=== PATIENT | male | born 1980 | race Caucasian/White ===

== ENCOUNTER 2018-09-21 05:25 | Inpatient (IN) | payer BC, OTHER ==
[~2018-09-21] VITALS: Ht 185.4 cm; Wt 185.1 kg
--- NOTE | ~2018-09-21 | HC ---
[facility] [place] [address] CONSULTATION Name: CARISA TOWNSEND Paola Room #: 426-P [facility] IN .R.#: [id number] Admission: 09/21/18 ������������������ Attend Phys: Darryl Lopez MD Discharge: 09/23/18 ������������������ Date of : 80 Report #: [id number] THIS REPORT FOR: //name// CC: Kye Lopez DATE OF SERVICE: 09/22/2018 INFECTIOUS DISEASE CONSULTATION: REASON FOR CONSULTATION: Evaluate for right diabetic foot infection with osteomyelitis. HISTORY OF PRESENT ILLNESS: The patient is a 38-year-old with underlying history of diabetes, hypertension. He has previously had an amputation of his first and fourth toes. About a year ago, he injured his fifth toe when he hit it on a bedpost. Subsequently, he developed soft tissue infection with ulceration. He has had issues with poor healing. Over the past month, it has worsened and he was started on IV antibiotic therapy. I do not have any microbiology reports, was placed on cefazolin. Due to progressive disease, he was transferred to the care of Dr. Lopez for surgical intervention. He comes to us on cefazolin a gram IV q. 8 hours via a left upper extremity PICC, which has been functioning well. Blood sugar control has been poor. Blood glucose levels over 300, have been common place. He denies any other diabetic complications. Today, he underwent transmetatarsal amputation without intraoperative complication. Postoperatively, he has been afebrile and hemodynamically stable. There has been no excess bleeding. REVIEW OF SYSTEMS: No nausea, vomiting, diarrhea, dysuria, frequency, cough or sputum production. No pleuritic chest pain. No palpitations or syncopal episode. Full 10-point review was negative other than what is described above. ALLERGIES: None known. MEDICATIONS: As noted on his MAR, which were reviewed including cefazolin. PAST MEDICAL HISTORY: Hypertension, diabetes, gastroesophageal reflux, previous toe amputations. FAMILY HISTORY: Noncontributory. SOCIAL HISTORY: Previous smoker, having quit about a year ago. No significant alcohol intake. 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 Lives with his . PHYSICAL EXAMINATION: VITAL SIGNS: Afebrile and hemodynamically stable. He was obese. He is alert [address] [address] CONSULTATION Name: CARISA TOWNSEND Room #: 426-P [facility] IN .R.#: [id number] Admission: 09/21/18 ������������������ Attend Phys: Darryl Lopez MD Discharge: 09/23/18 ������������������ Date of : 80 Report #: [id number] and cooperative, in no acute distress. Left upper extremity PICC site without drainage or erythema. SKIN: Without rash or decubitus. No palpable adenopathy. HEENT: Eyes, without scleral icterus. Mouth without mucositis. NECK: Supple, with no thyromegaly or mass. LUNGS: Clear to auscultation. HEART: Regular, without murmur, gallop or rub. ABDOMEN: Soft, nontender with no hepatosplenomegaly or mass. EXTREMITIES: Pulses were palpable in the left foot, but diminished. He had palpable pulse in his femoral and popliteal artery. Foot was wrapped and dry. NEUROLOGIC: Cranial nerves intact. Mood was normal. LABORATORY STUDIES: Chest x-ray was clear. Hemoglobin 10.5, WBC 12.7, platelet count 245,000. Creatinine 1.2. Gram stain, no organisms seen. Ultrasound of the lower extremity arterial Doppler was negative for high-grade obstruction. IMPRESSION: 1. Diabetes with diabetic foot infection with associated osteomyelitis requiring transmetatarsal amputation. 2. Hypertension. 3. Obesity. 4. Small vessel vascular disease. RECOMMENDATIONS: We will plan on continuing cefazolin. We will determine length of therapy following formal review of his operative report, pathology reports and cultures. The patient lives in [place], [place]. Anticipate discharge back to his primary care and Infectious Disease physician. ��������������������������������������������� ���������������������������������������� By: ��������������������������������������������� 0016 2107 Steven Bower MD /nt
[~2018-09-21 05:25] MED LIST: ASPIRIN325 PO; CEFAZOLIN2 GM/100 M IV; LANTUS100 UNIT/M SUBQ; LISINOPRIL20 MG PO; LOPRESSOR50 PO; METFORMIN HCL500 MG PO; NORVASC5 MG PO; NOVOLOG100 UNIT/1 SUBQ
[2018-09-21 07:00] VITALS: BP 160/81
--- NOTE | 2018-09-21 08:45 | EKG ---
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 : 1980 Requested By: Darryl Lopez Order Number: [id number] MD: Tank Frias Measurements Intervals [place] Rate: 71 P: 48 ME: 199 QRS: -34 QRSD: 115 T: 28 QT: 412 QTc: 448 Interpretive Statements Sinus rhythm Nonspecific intraventricular conduction delay No previous ECG available for comparison Electronically Signed On 09-21-2018 8:45:21 CDT by Tank Frias [email or web address] ��������������������������������������������� <ELECTRONICALLY SIGNED> ���������������������������������������� By: Tank Frias MD, [facility] ��������������������������������������������� 09/21/18 0845 0618 7 Tank Frias MD, FACC /EPI
[2018-09-21 15:10] VITALS: BP 170/89
[2018-09-21 16:00] VITALS: BP 164/85
--- NOTE | 2018-09-21 19:06 | NUR ---
PT ARRIVED ON UNIT AT APPROX 1430 . PT ALERT XS 4 STATES NO PAIN AT THE PRESENT. LUNGS CTA. BS'S XS 4. BM THIS AM. PT HAS DRSG TO RIGHT FOOT.COVERED WITH SUNDEEP. HAS 2 DRAINS UNDER.LEFT UPPER ARM PICC.X-RAY TO CHECK FOR PLACEMENT DONE. ROOM AIR. PT HAD LUNCH AND INSULIN IN POST OP. DM DIET, SCD'S. POST OP SHOE IN ROOM. PT PLEASANT AND COOPERATIVE WITH CARE.
[2018-09-21 19:27] VITALS: BP 167/86
--- NOTE | 2018-09-22 03:43 | NUR ---
PT DENIED PAIN,N/V SO FAR.URINAL AT BEDSIDE FOR ELIMINATION.ASSESSMENT COMPLETED.DRSG TO R FOOT C/D/I WITH ORTHOPEDIC SHOE IN PLACE.SCD IN PLACE.PT ABLE TO MOVE SELF WHILE IN BED.PT RESTING ON HIS BED AT THIS TIME.FALL PRECAUTIONS IN PLACE,CALL LIGHT WITHIN REACH.
[2018-09-22 04:47] VITALS: BP 37/59
[2018-09-22 06:19] LABS: ABSOLUTE NEUTROPHILS 9.8 thou/uL (1.4-8.2); BASOPHILS 0.4 % (0.0-2.0); EOSINOPHILS 0.3 % (0.0-3.0); HEMATOCRIT 31.1 % (42.0-52.0); HEMOGLOBIN 10.5 gm/dL (14.0-18.0); LYMPHOCYTES 17.3 % (24.0-44.0); MCH 27.9 pg (26.0-34.0); MCHC 33.7 g/dL (28.0-37.0); MCV 82.9 fL (80.0-100.0); MONOCYTES 5.3 % (1.0-8.0); PLATELET COUNT 245 thou/uL (150-400); POLYS 76.7 % (36.0-66.0); RBC 3.75 mil/uL (4.50-6.00); RDW 13.9 % (10.5-14.5); WBC 12.7 thou/uL (4.0-11.0)
--- NOTE | 2018-09-22 08:38 | NUR ---
INITIAL ASSESSMENT: Pt evaluated for d/c planning needs. Reviewed chart and spoke with nurse and pt. Pt is alert and oriented. Pt lives in house with spouse. Pt is employed outside the home and is independent with ADL's. Pt has walker for home use. Pt has been on IVAB for about 3 weeks prior to admission to the hospital and obtains his antibiotics at his physician's office weekly. They also do dressing changes on IV. Pt plans on returning home on d/c from hospital. Will remain available to assist as needed.
[2018-09-22 08:45] LABS: CALCIUM 8.2 mg/dL (8.5-10.1); CREATININE 1.2 mg/dL (0.7-1.3); MAGNESIUM 1.8 mg/dL (1.8-2.4)
[2018-09-22 08:51] LABS: POTASSIUM 4.9 mmol/L (3.5-5.1)
[2018-09-22 09:15] VITALS: BP 142/67
[2018-09-22 18:11] VITALS: BP 178/89
--- NOTE | 2018-09-22 18:34 | NUR ---
PT STATES SURGEON WILL BE IN 09/23/18 HE WILL UNDO BANDAGE / DRSG. LEAVE INTACT UNTIL THEN.
[2018-09-22 20:45] VITALS: BP 182/75
[2018-09-23 01:59] VITALS: BP 119/64
[2018-09-23 04:20] VITALS: BP 131/68
--- NOTE | 2018-09-23 05:37 | NUR ---
PT DENIED PAIN SO FAR.CONT ON IV ABX ORDERED.URINAL AT BEDSIDE.DRSG TO R FOOT C/D/I.HEEL BEARING SHOE IN PLACE ON R FOOT.PT RESTING COMFORTABLY ON HIS BED AT THIS TIME.CALL LIGHT WITHIN REACH.
[2018-09-23 07:30] VITALS: BP 185/90
[2018-09-23] MEDS ORDERED: PROTONIX40 M1 PO (10:45)
[2018-09-23 13:39] VITALS: BP 185/90
--- NOTE | 2018-09-23 14:10 | NUR ---
ASSUMED CARE AT 0700, SHIFT ASSESSMENT DONE, MEDS GIVEN, VSS. DENIES PAIN, NAUSEA, VOMITING. DISCHARGE ORDER RECEIVED, PICC LINE DRESSING WAS CHANGED. IV ANTIBIOTIC RECEIVED. WILL PET GROOMER MEDICATION FROM [facility]. LEFT WITH [facility] AT 1410.
--- NOTE | 2018-09-23 14:12 | NUR ---
Received order from Dr Bower to arrange IVAB. SPoke with pt and spouse. Pt had spoken with doctor's office in [place] and will picker tender helper IVAB either this afternoon or tomorrow before 11:15. Pt has 2 doses of medication at home for tonight's dose and morning dose. No other needs identified. Pt declines home health.
--- NOTE | 2018-09-23 16:18 | NUR ---
VASCULAR ACCESS TEAM CALLED TO CHANGE PT'S PICC LINE DRESSING PRIOR TO DC HOME. PT WAS ADM WITH PICC DRESSING DATED 09/16/18, DRESSING INTACT BUT DIRTY. DRG CHG'D PICC HAS BRISK BLOOD RETURN. PT INSTRUCTED TO CHANGE EXTENSION ON IV WHEN GOES HOME, VERBALIZED UNDERSTANDING
--- NOTE | 2018-09-23 17:06 | PATH ---
[facility] [address] [place] [address] PATHOLOGY RPT PROCEDURE Name: ZANDER PASTOR Paola Room #: 426-P DIS IN M.R.#: [id number] ������������������ Admission: 09/21/18 ������������������ Date of : 80 Discharge: 09/23/18 Report #: [id number] Path Case #: [id number] [facility] Accession Number: [id number] . 01 Material submitted: . foot - RIGHT FOOT TRANSMETATARSAL AMPUTATION. Modifiers: right . 01 Clinician provided ICD-10: M86.1 . 01 Clinical history: . Right foot osteomyelitis . 02 Diagnosis: Foot, right foot, transmetatarsal amputation: - Marked acute and chronic osteomyelitis. - Margins of resection of bone unremarkable and viable. - Skin margin viable and unremarkable. (IUV/db; 09/23/2018) LBQ/09/23/2018 . 02 Electronically signed: . Dominique Giraldo MD, Pathologist NPI- [id number] . 01 Gross description: . The specimen is received in formalin, labeled "Zander Pastor, right foot transmetatarsal amputation". Received is a right partial forefoot amputation measuring 9.7 x 8.8 x 3.2 cm in greatest dimensions. Toes 3 through 5 are present. The bone margins are blunt in appearance, consistent with transection. Only the bone margins of toes 2 through 5 are present. The bone margins are inked as follows: Toe 2-black, toe 3-blue, toe 4-yellow, toe 5-red. The nails are present on toes 3 through 5 displaying a pale sweeney to light sweeney and thickened appearance. The epidermal surface is pale sweeney and slightly wrinkled in appearance with no grossly distinct lesions. The great toe is absent. Sectioning through each bone reveals yellow-sweeney cut surfaces with no grossly distinct evidence of inflammation or degeneration. . Also received within the specimen container is a segment of thickened pale sweeney skin measuring 12.4 x 2.6 x 1.5 cm in greatest dimensions. Sectioning reveals yellow-sweeney cut surfaces with no grossly distinct nodules or lesions. The specimen is submitted representatively as follows: . A1 full-thickness longitudinal cross-section of bone from toe 2, following decalcification A2 longitudinal cross-section of bone margin from toe 3, [place] [address] PATHOLOGY RPT PROCEDURE Name: ZANDER PASTOR Room #: 426-P DIS IN M.R.#: [id number] ������������������ Admission: 09/21/18 ������������������ Date of : 80 Discharge: 09/23/18 Report #: [id number] Path Case #: [id number] decalcification A3 longitudinal cross-section of bone margin from toe 4, following decalcification A4 longitudinal cross-section of bone margin from toe 5, following decalcification A5 national sales representative sections of separately submitted skin. (CAA; 09/22/2018) QAC/QAC . 02 Pathologist provided ICD-10: M86.171, M86.671 . 02 CPT . 403735, 440406 Specimen Comment: A courtesy copy of this report has been sent to Specimen Comment: [phone], . Specimen Comment: Report sent to / DR NELSON Performed at: [address], [place] [id number] MD Jameel Blevins MD Phone: [phone] Performed at: [address] [id number] MD Dominique Giraldo MD Phone: [phone]
--- NOTE | 2018-09-27 09:54 | O ---
[facility] [place] [address] [place] [address] OPERATIVE REPORT Name: CARISA TOWNSEND Paola Room #: 426-P [facility] IN .R.#: [id number] Admission: 09/21/18 ������������������ Attend Phys: Darryl Lopez MD Discharge: 09/23/18 ������������������ Date of : 80 Report #: [id number] THIS REPORT FOR: //name// CC: Kye Lopez DATE OF SERVICE: 09/21/2018 PREOPERATIVE DIAGNOSIS: Right foot forefoot osteomyelitis. POSTOPERATIVE DIAGNOSIS: Right foot forefoot osteomyelitis. PROCEDURE: Right forefoot transmetatarsal amputation. SURGEON: Darryl Lopez M.D. [place]GAL LEGAL SECRETARY: Lolita Blount. ANESTHESIA: General. ESTIMATED BLOOD LOSS: Minimal. DRAINS: One [place] drain was placed to the wound. COMPLICATIONS: There were no complications. DESCRIPTION OF PROCEDURE: The patient was brought to the operating room, where he was placed under general anesthesia. Once under adequate general anesthesia, his right lower extremity was prepped and draped in a sterile manner. The extremity was elevated and a tourniquet placed to 250 mmHg. A fishmouth-type incision based about the forefoot, extending from the second metatarsal to the fifth metatarsal was then made. Sharp dissection was carried down to the metatarsals and the tissue was elevated off of the bone throughout. The level of amputation at the first metatarsal was then noted and the second, third, fourth and fifth were then transected with a sagittal saw in a cascading fashion across the forefoot. The entire forefoot had been removed. The wound was irrigated copiously and closed over a Elio drain with 2-0 nylon suture for the skin. Once complete, the wound was dressed with Xeroform, 4 x 4s and a sterile soft compressive dressing was placed. Tourniquet was let down at approximately 30 minutes. There were no complications from the procedure. The patient tolerated the procedure well and went to the recovery room without incident. ��������������������������������������������� <ELECTRONICALLY SIGNED> ���������������������������������������� By: Darryl Lopez MD ��������������������������������������������� 09/27/18 0954 0822 1110 Darryl Lopez MD /nt
== END 2018-09-23 14:53 | disposition home or self-care (01) | DRG 617 ==
LOC: TBA 05:25 → 4E 05:25 → PRE 10:22 → 4E 14:53 → ENTRNSPT 09-23 13:56 → EDTRNSPTSTS 09-23 13:57 → 4E 09-23 14:53
PROVIDERS: ADMIT Orthopaedic Surgery Foot and Ankle Surgery
PROC: 0Y6M0Z6 Detachment at Right Foot, Complete 3rd Ray, Open Approach (ICD-10-PCS; principal; 2018-09-21)
PROC: 0Y6M0Z5 Detachment at Right Foot, Complete 2nd Ray, Open Approach (ICD-10-PCS; principal; 2018-09-21)
PROC: 0Y6M0Z7 Detachment at Right Foot, Complete 4th Ray, Open Approach (ICD-10-PCS; principal; 2018-09-21)
PROC: 0Y6M0Z8 Detachment at Right Foot, Complete 5th Ray, Open Approach (ICD-10-PCS; principal; 2018-09-21)
DX: E11.69 Type 2 diabetes mellitus with other specified complication (principal); M86.8X7 Other osteomyelitis, ankle and foot; I10 Essential (primary) hypertension; E66.9 Obesity, unspecified; E11.51 Type 2 diabetes mellitus with diabetic peripheral angiopathy without gangrene; K21.9 Gastro-esophageal reflux disease without esophagitis; E11.65 Type 2 diabetes mellitus with hyperglycemia; Z68.43 Body mass index [BMI] 50.0-59.9, adult; Z87.891 Personal history of nicotine dependence
CPT/HCPCS: 10783; 50010; 50101; 50386; 50951; 56525; 56526; 56528; 57091; 57179; 62110; 62900; 70005